=== PATIENT | male | born 1960 | race Caucasian/White ===

== ENCOUNTER → 2020-01-14 | Outpatient (CLI) | payer BC ==
[~2020-01-14] MED LIST: AMOCLA875 PO; BENZ100A PO; FLUT.05NI
[2020-01-16 01:10] LABS: CHLAMYDIA TRACHOMATIS, NAA Negative (Negative); NEISSERIA GONORRHOEAE, NAA Negative (Negative)
== END | disposition home or self-care (01) ==
LOC: LAB 09:42 → LAB SHORT 09:42
PROVIDERS: Physician Assistant
DX: R30.0 Dysuria (principal)
CPT/HCPCS: 87086; 87491; 87591

== ENCOUNTER → 2024-04-03 | Outpatient (CLI) | payer BC | LOC: LAB SHORT 17:09 → LAB 17:09 | DX: R39.82 Chronic bladder pain (principal); R10.9 Unspecified abdominal pain | CPT/HCPCS: 87086 ==

== ENCOUNTER 2025-06-15 00:43 | Day surgery (SDC) | payer MEDICARE ==
[2025-06-15 14:05] VITALS: BP 192/109
[2025-06-15] MEDS ORDERED: ATOR20 PO (14:10)
[2025-06-15] MEDS ORDERED: METO50ER PO (14:11)
[2025-06-15] MEDS ORDERED: Fosinopril Sodi40 MG PO (14:11)
--- NOTE | 2025-06-15 14:49 | NUR ---
PT BP ELEVATED 192/109. PT REPORTS HE DID NOT TAKE HIS BP MEDS TODAY. HE CHECKED HIS BP AT HOME BEFORE COMING TO APPT AND IT WAS 150'S/80'S. PT REPORTS NO SYMPTOMS OF ELEVATED BP. PT GOING TO GO HOME AND TAKE BP MEDS AND MONITOR BP. PT TO RETURN TO MD IF BP DOES NOT COME DOWN AND PT TO COME INTO ER IF HE DEVELOPS ANY SYMPTOMS WITH HIGH BP.
--- NOTE | 2025-06-15 14:52 | NUR ---
PT ARRIVED TO [facility] AT 1403 REPORTING THAT HE LAST VOIDED AT 1320 TODAY. PT REPORTS HAVING DRANK APPROX. 20ML OF WATER SINCE LAST VOID. PT GIVEN WATER TO DRINK AND ADVISED TO CALL RN TO HIS ROOM ONCE HE FELT THE URGE TO VOID. APPROX 30 MIN LATER AT 1434 PT REPORTED THE URGE TO VOID. PT HAD DRANK AN ADDITIONAL 10ML OF WATER FOR A TOTAL OF 30ML SINCE LAST VOID. PT PREVOID SCAN AT THIS TIME WAS 102ML. PT VOIDED 95ML CLEAR YELLOW URINE. POST VOID SCAN AT 1440 WAS 12ML. PT ADVISED THAT EMPTYING HIS BLADDER ISN'T HIS PROBLEM, BUT RATHER IT IS THE URGENCY AND FREQUENCY.
--- NOTE | 2025-06-15 15:11 | NUR ---
BLADDER SCAN REPORT FAXED TO DR MENJIVAR
== END 2025-06-15 14:42 | disposition home or self-care (01) ==
LOC: ATC 00:43
DX: R35.0 Frequency of micturition (principal); R39.15 Urgency of urination; R35.1 Nocturia; I10 Essential (primary) hypertension; G89.29 Other chronic pain; M54.50 Low back pain, unspecified; E78.5 Hyperlipidemia, unspecified; K21.9 Gastro-esophageal reflux disease without esophagitis; R73.9 Hyperglycemia, unspecified; Z87.891 Personal history of nicotine dependence; Z79.899 Other long term (current) drug therapy
CPT/HCPCS: 51798